=== PATIENT | female | born 1965 | race Caucasian/White ===

== ENCOUNTER 2021-05-03 02:07 | Day surgery (SDC) | payer BC, SELFPAY ==
[2021-04-22 13:54] VITALS: BMI 25.6
--- NOTE | 2021-05-03 07:04 | P.PNAN_ITS ---
Anes - Initial Pre Proc Eval Procedure: Operation Date: 05/03/21 09:30 Proposed Procedures p Colonoscopy - Max Sam MD Date/Time: 05/03/21 07:04 Surgeon: Max Sam MD Pre Op Diagnosis: blood in stool, hx of polyps Patient Data Age: 55 Gender: F Height: 1.68 m Weight: 72 kg Allergies Allergy/AdvReac Type Severity Reaction Status Date / Time codeine Allergy Mild Other Unverified 05/03/21 08:59 meperidine Allergy Mild Other Unverified 05/03/21 08:59 hydrogen peroxide Allergy Unknown Other Verified 05/03/21 08:59 Sulfa (Sulfonamide Allergy Unknown Other Verified 05/03/21 08:59 Antibiotics) albuterol AdvReac Unknown Chills Verified 05/03/21 08:59 Home Medications Medication Instructions Recorded Confirmed Type ascorbic acid (vitamin C) 500 mg PO DAILY 04/22/21 05/03/21 History cholecalciferol (vitamin D3) 25 mcg PO DAILY 04/22/21 05/03/21 History [Vitamin D3] estradiol-norethindrone acet 1 tablet PO DAILY 04/22/21 05/03/21 History multivit with min-folic acid 1 tablet PO DAILY 04/22/21 05/03/21 History [Adult One Daily Multivitamin] omeprazole 40 mg PO DAILY 04/22/21 05/03/21 History valacyclovir 500 mg PO DAILY 04/22/21 05/03/21 History Patient hx anesthesia problems: none Family hx anesthesia problems: none PENDING SALE TO [facility] Past Medical History Medical History (Updated 05/03/21 @ 07:05 by Mil Stern DO) Asthma GERD (gastroesophageal reflux disease) Irregular heart beat Social History Social History Smoking status: Never smoker Alcohol use details: 2x monthly Living arrangements: with family Spiritual care concerns: No Anes - Eval Final PreProcedure Day of Procedure 05/03/21 07:04 Patient weight: overweight Heart: regular rate and rhythm Lungs: clear to auscultation and normal air movement Airway: Mallampati scale class II Neurological: alert and oriented Last oral intake: >/= 8 hours ASA classification: II Emergent: no Anesthetic plan: proceed Anesthesia type and monitoring: general GIVS and standard monitoring Informed Consent: The patient's anesthetic plan and its attendant risks and benefits were discussed with the patient/family/POA. Questions were solicited and answers provided to the satisfaction of the patient/family/POA.
[2021-05-03 08:59] VITALS: BP 113/61; PULSE 97; RESP 14; TEMP 35.9; O2SAT 100; BMI 24.7
[2021-05-03] MEDS: LACTATED RINGERS 1,000 ML 150 ML IV CONT (09:14)
--- NOTE | 2021-05-03 09:49 | PM.HPGS ---
History of Present Illness History of Present Illness Consent: Risks, benefits, and alternatives have been discussed and questions answered. Patient agrees to proceed with procedure. Chief complaint: blood in stool, hx of polyps Narrative: Dorene Flores is a 55 year old female with previous colonoscopies and polyps, last one 9 years ago. Review of Systems Constitutional: Constitutional: Denies headache(s) and Denies weakness Eyes: Eyes: Denies blurry vision ENT: Reports Normal hearing present, Denies headache(s) and Denies neck pain Cardiovascular: Cardiovascular: Denies chest pain and Denies dyspnea Respiratory: Respiratory: Denies dyspnea Gastrointestinal: Gastrointestinal: Reports no additional gastrointestinal complaints Genitourinary: Genitourinary: Denies dysuria Musculoskeletal: Musculoskeletal: Denies neck pain Integumentary/Breasts: Skin/Breast: Denies dry skin Neurologic: Reports Normal hearing present, Denies headache(s) and Denies weakness Psychiatric: Psychiatric: Denies anxiety Endocrine: Endocrine: Denies change in body appearance Hematologic/Lymphatic: Hematologic/Lymphatic: Denies easy bleeding Allergic/Immunologic: Allergic/Immunologic: Denies urticaria PMF Past Medical History Medical History (Updated 05/03/21 @ 09:50 by Max Sam MD) Asthma Colon polyp GERD (gastroesophageal reflux disease) Irregular heart beat Social History Social History Smoking status: Never smoker Alcohol use details: 2x monthly Living arrangements: with family Spiritual care concerns: No Meds Home Medications and Allergies Home Medications Medication Instructions Recorded Confirmed Type ascorbic acid (vitamin C) 500 mg PO DAILY 04/22/21 05/03/21 History cholecalciferol (vitamin D3) 25 mcg PO DAILY 04/22/21 05/03/21 History [Vitamin D3] estradiol-norethindrone acet 1 tablet PO DAILY 04/22/21 05/03/21 History multivit with min-folic acid 1 tablet PO DAILY 04/22/21 05/03/21 History [Adult One Daily Multivitamin] omeprazole 40 mg PO DAILY 04/22/21 05/03/21 History valacyclovir 500 mg PO DAILY 04/22/21 05/03/21 History Allergies Allergy/AdvReac Type Severity Reaction Status Date / Time codeine Allergy Mild Other Unverified 05/03/21 08:59 meperidine Allergy Mild Other Unverified 05/03/21 08:59 hydrogen peroxide Allergy Unknown Other Verified 05/03/21 08:59 Sulfa (Sulfonamide Allergy Unknown Other Verified 05/03/21 08:59 Antibiotics) albuterol AdvReac Unknown Chills Verified 05/03/21 08:59 Vital Signs Vital Signs - 24 hr 05/03/21 08:59 Temperature 96.6 F L Pulse Rate 97 Respiratory Rate 14 Blood Pressure 113/61 Pulse Oximetry 100 Exam Const: General: comfortable and no acute distress HENMT: General nose exam: Normal nares present Eyes: General: appearance normal, both eyes and all related structures Neck: Neck: no JVD Resp: Auscultation: clear to auscultation bilaterally Cardio: Rate: regular rate Rhythm: regular rhythm GI: Inspection: non-distended GI Palp: Yes Soft to palpation Skin: General skin exam: normal color Neuro: General: gait normal Speech: normal speech Extrem: General: normal to inspection Psych: Mental Status: mental status grossly normal Assessment and Plan Assessment and plan (1) Colon polyp: Code(s): K63.5 - Polyp of colon Status: Acute Assessment and Plan: colonoscopy
[2021-05-03 10:15] VITALS: BP 105/66; PULSE 86; RESP 23; O2SAT 100
[2021-05-03 10:25] VITALS: BP 100/62; BP 96/59; PULSE 72; PULSE 76; RESP 15; RESP 19; O2SAT 100; O2SAT 99
== END 2021-05-03 11:02 | disposition home or self-care (01) ==
PROVIDERS: PCP Family Medicine; Referring Provider Obstetrics & Gynecology; Visit Provider Internal Medicine Gastroenterology
PROC: 0DJD8ZZ Inspection of Lower Intestinal Tract, Via Natural or Artificial Opening Endoscopic (ICD-10-PCS; CPT 45378; principal; 2021-05-03 09:30)
DX: Z12.11 Encounter for screening for malignant neoplasm of colon (principal); D12.2 Benign neoplasm of ascending colon; K63.5 Polyp of colon; K64.8 Other hemorrhoids; K21.9 Gastro-esophageal reflux disease without esophagitis; J45.909 Unspecified asthma, uncomplicated
CPT/HCPCS: 45385; 88305; J2704; J7120